=== PATIENT | male | born 1975 | race Caucasian/White ===

== ENCOUNTER 2017-06-04 16:29 | Emergency (ER) | payer BC ==
[2017-06-04 16:36] VITALS: BP 139/91
--- NOTE | 2017-06-04 17:06 | RADIOLOGY REPORT (SQ) ---
EXAM DESCRIPTION: ANKLE LEFT COMPLETE COMPLETED DATE/TIME: 06/04/2017 4:58 pm REASON FOR STUDY: fall COMPARISON: None. NUMBER OF VIEWS: Three views. TECHNIQUE: AP, lateral, and oblique radiographic images acquired of the left ankle. LIMITATIONS: None. FINDINGS: MINERALIZATION: Normal. BONES: No acute fracture or dislocation. No worrisome bone lesions. JOINTS: There is a small ankle effusion demonstrated on the lateral film. SOFT TISSUES: No soft tissue swelling. No foreign body. OTHER: No other significant finding. IMPRESSION: Small ankle effusion. No fractures. TECHNICAL DOCUMENTATION: JOB ID: [id number]- All Rights Reserved
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
== END 2017-06-04 18:04 | disposition home or self-care (01) ==
LOC: ER 16:29
DX: S93.412A Sprain of calcaneofibular ligament of left ankle, initial encounter (principal); X50.1XXA Overexertion from prolonged static or awkward postures, initial encounter
CPT/HCPCS: 99283; 73610; L1902

== ENCOUNTER 2018-12-04 15:05 | Emergency (ER) | payer BC, OTHER ==
--- NOTE | 2018-12-04 18:59 | ER Document Report ---
ED General - General Chief Complaint: Blood Pressure Problem Stated Complaint: BLOOD PRESSURE ISSUE Time Seen by Provider: 12/04/18 18:45 Primary Care Provider: DWAYNE GENAO MD [Primary Care Provider] - Follow up in 1 month Notes: Patient is a 43-year-old male that presents to the emergency department for chief complaint of elevated blood pressure. Patient reports that his blood pressure has been elevated, at home he takes his blood pressure using a home wrist cuff, the systolic has been in the 160s and 170s, with a diastolic in the 110s, he does take losartan 100 mg daily for his blood pressure, he was on hydrochlorothiazide in the past, but it was discontinued recently. He states there was a period of time where he missed doses of his medication, but got back on them, he was seen in the office on Tuesday and his blood pressure was elevated, there is no adjustments at this time, is been having some mild headaches in the morning, at this time denies having any headache, is been taking Motrin when it does come up. Denies any other complaints, denies chest pain, decreased urine, confusion, syncope, or shortness of breath. Denies any swelling in his legs. Past Medical History: Hypertension, restless leg syndrome Past Surgical History: ORIF of the tibia, left elbow surgery Social History: Former smoker, denies alcohol or drug use. Family History: Reviewed and noncontributory for presenting illness Allergies: Reviewed, see documented allergy list. REVIEW OF SYSTEMS: Other than noted above, the 12 point review of systems was reviewed with the patient and were negative, all pertinent findings are included in the HPI. PHYSICAL EXAMINATION: Vital signs reviewed, nursing noted reviewed. GENERAL: Well-appearing, well-nourished and in no acute distress. HEAD: Atraumatic, normocephalic. EYES: Eyes appear normal, extraocular movements intact, sclera anicteric, conjunctiva are normal. ENT: nares patent, oropharynx clear without exudates. Moist mucous membranes. NECK: Normal range of motion, supple without lymphadenopathy LUNGS: Breath sounds clear to auscultation bilaterally and equal. No wheezes rales or rhonchi. HEART: Regular rate and rhythm without murmurs ABDOMEN: Soft, nontender, normoactive bowel sounds. No rebound, guarding, or rigidity. No masses appreciated. EXTREMITIES: Nontender, good range of motion, no pitting or edema. NEUROLOGICAL: No focal neurological deficits. Moves all extremities spontaneously Motor and sensory grossly intact on exam. PSYCH: Normal mood, normal affect. SKIN: Warm, Dry, normal turgor, no rashes or lesions noted on exposed skin TRAVEL OUTSIDE OF THE [place] IN LAST 30 DAYS: No - Related Data Allergies/Adverse Reactions: No Known Allergies Allergy (Unverified 12/04/18 15:10) Past Medical History - Social History Smoking Status: Former Smoker Frequency of alcohol use: twice a month Drug Abuse: None Family History: Reviewed & Not Pertinent, CAD, Hyperlipidemia, Hypertension, Malignancy Patient has suicidal ideation: No Patient has homicidal ideation: No - Past Medical History Cardiac Medical History: Reports: Hx Hypertension Renal/ Medical History: Denies: Hx Peritoneal Dialysis Musculoskeletal Medical History: Reports Hx Musculoskeletal Trauma Traumatic Medical History: Reports: Hx Fractures - knee right left elbow Past Surgical History: Reports: Hx Orthopedic Surgery - left elbow, right tibial plateau - Immunizations Hx Diphtheria, Pertussis, Tetanus Vaccination: No Physical Exam - Vital signs Vitals: Temp Pulse Resp BP Pulse Ox 99.0 F 101 H 16 166/101 H 98 12/04/18 15:55 12/04/18 15:55 12/04/18 15:55 12/04/18 15:55 12/04/18 15:55 Course - Re-evaluation Re-evalutation: Patient was seen and examined, vital signs reviewed, his blood pressure was elevated, is mildly tachycardic on presentation, upon repeat of his vitals, his heart rate did come down to a degree, feel the patient does need treatment for his blood pressure, he is already on 100 mg of losartan daily, do not feel increasing this would improve his blood pressure much, I discussed with him other options including amlodipine, and metoprolol, given that he was mildly tachycardic upon arrival, we decided to start him on metoprolol 25 mg twice daily to help augment his blood pressure, advised to follow-up with his primary care of which she has an appointment coming up in a few weeks, he is advised to monitor the blood pressure and his heart rate, with his monitor at home, if he had lightheadedness, to call his primary care and discontinue the metoprolol. Patient was agreeable and discharged home. - Vital Signs Vital signs: Temp Pulse Resp BP Pulse Ox 98.2 F 81 20 162/118 H 98 12/04/18 19:02 12/04/18 19:02 12/04/18 19:02 12/04/18 19:02 12/04/18 19:02 Discharge - Discharge Clinical Impression: Hypertension Qualifiers: Hypertension type: unspecified Qualified Code(s): I10 - Essential (primary) hypertension Condition: Stable Disposition: HOME, SELF-CARE Instructions: High Blood Pressure, Requiring Treatment ([facility]) Prescriptions: RX: Metoprolol Tartrate [Lopressor 25 mg Tablet] 25 mg PO Q12 #60 tab Referrals: DWAYNE GENAO MD [Primary Care Provider] - Follow up in 1 month
[2018-12-04 19:07] VITALS: BP 162/118
== END 2018-12-04 19:07 | disposition home or self-care (01) ==
LOC: ER 15:05
DX: I10 Essential (primary) hypertension (principal); Z79.899 Other long term (current) drug therapy; R00.0 Tachycardia, unspecified; Z87.891 Personal history of nicotine dependence
CPT/HCPCS: 99283

== ENCOUNTER 2019-01-15 04:05 | Emergency (ER) | payer OTHER ==
[2019-01-15] MEDS ORDERED: NORMAL SALINE 1000 ML 1,000 ML IV ONE (05:03)
[2019-01-15] MEDS ORDERED: MORPHINE SULFATE 10 MG/ML INJ IV ONE (05:03)
[2019-01-15] MEDS ORDERED: ONDANSETRON HCL INJ/PF 4 MG/2 ML SDV IV ONE (05:03)
--- NOTE | 2019-01-15 05:19 | ER Document Report ---
ED GI/ - General Chief Complaint: Abdominal Pain Stated Complaint: SEVERE ABDOMINAL PAIN Time Seen by Provider: 01/15/19 04:59 Primary Care Provider: DWAYNE GENAO MD [Primary Care Provider] - Follow up as needed Notes: Patient is a 43-year-old male that comes to the emergency department for chief complaint of abdominal pain. He states the pain will come up, pain is in the middle of his abdomen, he states pain is severe and caused him to vomit several times. He denies fever or chills. He reports a normal bowel movement within the past day. He reports a past medical history of smoking, hypertension, and kidney stones. He states this does not feel the same as his previous kidney stones. He does report possible pinkish urine however. He denies any abdominal surgeries. TRAVEL OUTSIDE OF THE [place] IN LAST 30 DAYS: No - Related Data Allergies/Adverse Reactions: No Known Allergies Allergy (Unverified 12/04/18 15:10) Past Medical History - Social History Smoking Status: Unknown if Ever Smoked Family History: Reviewed & Not Pertinent, CAD, Hyperlipidemia, Hypertension, Malignancy Patient has suicidal ideation: No Patient has homicidal ideation: No - Past Medical History Cardiac Medical History: Reports: Hx Hypertension Renal/ Medical History: Denies: Hx Peritoneal Dialysis Musculoskeletal Medical History: Reports Hx Musculoskeletal Trauma Traumatic Medical History: Reports: Hx Fractures - knee right left elbow Past Surgical History: Reports: Hx Orthopedic Surgery - left elbow, right tibial plateau - Immunizations Hx Diphtheria, Pertussis, Tetanus Vaccination: No Review of Systems - Review of Systems Constitutional: No symptoms reported EENT: No symptoms reported Cardiovascular: No symptoms reported Respiratory: No symptoms reported Gastrointestinal: See HPI Genitourinary: See HPI Male Genitourinary: No symptoms reported Musculoskeletal: No symptoms reported Skin: No symptoms reported Hematologic/Lymphatic: No symptoms reported Neurological/Psychological: No symptoms reported Physical Exam - Vital signs Vitals: Temp Pulse Resp BP Pulse Ox 97.4 F 67 16 143/93 H 99 01/15/19 04:09 01/15/19 04:09 01/15/19 04:09 01/15/19 04:09 01/15/19 04:09 - Notes Notes: GENERAL: Alert, moderate distress, has trouble holding still HEAD: Normocephalic, atraumatic. EYES: Pupils equal, round, and reactive to light. Extraocular movements intact. ENT: Oral mucosa moist, tongue midline. Oropharynx unremarkable. Airway patent. Nares patent, no nasal septal hematoma, TM's intact. NECK: Full range of motion. Supple. Trachea midline. LUNGS: Clear to auscultation bilaterally, no wheezes, rales, or rhonchi. No respiratory distress. HEART: Regular rate and rhythm. No murmur ABDOMEN: There is tenderness in the left general abdomen in both lower and upper areas. Right side of the abdomen is completely unremarkable. GENITOURINARY: No tenderness or concerning N normality noted. EXTREMITIES: Moves all 4 extremities spontaneously. No edema, normal radial and dorsalis pedis pulses bilaterally. No cyanosis. BACK: no cervical, thoracic, lumbar midline tenderness. No saddle anesthesia, normal distal neurovascular exam. NEUROLOGICAL: Alert and oriented x3. Normal speech. [cranial nerves II through XII grossly intact]. PSYCH: Mildly agitated SKIN: Warm, dry, normal turgor. No rashes or lesions noted. Course - Re-evaluation Re-evalutation: Patient with obvious discomfort. There is tenderness in the left side of the abdomen. He reports that he had some pink urine. Most likely passing ureterolithiasis. CBC unremarkable, chemistry unremarkable. CAT scan was performed because patient states this is not the same as his previous experiences and he is in obvious discomfort. CAT scan shows passing 2 mm stone with low-grade obstruction. No acute findings otherwise. Urinalysis obtained, it does have 1+ bacteria but there are no leukocyte esterase, nitrites, and only 2 white blood cells. Grossly bloody. Culture was placed. Patient does not have a fever. Symptoms just started. Discussed with patient. Patient was helped by Toradol more than anything else. He does not have a urologist, he will be referred. Patient appears much improved. Discussed follow-up and return precautions. Patient states understanding and agreement. - Vital Signs Vital signs: Temp Pulse Resp BP Pulse Ox 97.4 F 67 17 154/100 H 96 01/15/19 04:09 01/15/19 04:09 01/15/19 07:01 01/15/19 07:01 01/15/19 07:01 - Laboratory Result Diagrams: 01/15/19 04:25 01/15/19 04:25 Laboratory results interpreted by me: 01/15/19 01/15/19 01/15/19 04:25 04:25 07:07 Hgb 17.1 H Glucose 140 H Calcium 10.9 H Urine Protein 30 H Urine Glucose (UA) 50 H Urine Blood LARGE H Discharge - Discharge Clinical Impression: Ureterolithiasis Vomiting Qualifiers: Vomiting type: unspecified Vomiting Intractability: non-intractable Nausea presence: with nausea Qualified Code(s): R11.2 - Nausea with vomiting, unspecified Abdominal pain Qualifiers: Abdominal location: unspecified location Qualified Code(s): R10.9 - Unspecified abdominal pain Condition: Stable Disposition: HOME, SELF-CARE Additional Instructions: You are passing a 2 mm kidney stone on the left side. There is an additional st one in the left kidney that may pass in the future. Take the pain medication if needed, you can take them both together if needed, take the nausea medication as prescribed. Follow-up with urology referral listed below. Return if you worsen including fever/chills, severe worsening pain, uncontrolled vomiting, or any other concerning symptoms. [facility] [address] [place] [id number] [facility] [address] [place], [place] [id number] Lore Rowley MD Doctor in [place], [place] Address: [address] [place] [address] [address], [place] [address] Prescriptions: Oxycodone HCl/Acetaminophen [Percocet 5-325 mg Tablet] 1 - 2 tab PO Q6HP PRN #15 tablet PRN Reason: Ketorolac Tromethamine [Toradol 10 mg Tablet] 10 mg PO Q8HP PRN #24 tablet PRN Reason: Ondansetron [Zofran Odt 4 mg Tablet] 1 - 2 tab PO Q4H PRN #20 tab.rapdis PRN Reason: For Nausea/Vomiting Forms: Return to Work Referrals: DWAYNE GENAO MD [Primary Care Provider] - Follow up as needed
[2019-01-15] MEDS ORDERED: ONDANSETRON HCL INJ/PF 4 MG/2 ML SDV ONE (05:27)
[2019-01-15 05:29] LABS: ABSOLUTE LYMPHOCYTES (AUTO) 3.8 10^3/uL (0.5-4.7); ABSOLUTE NEUT (AUTO) 4.8 10^3/uL (1.7-8.2); BASOPHILS % (AUTO) 0.7 % (0-2); EOSINOPHILS % (AUTO) 3.1 % (0-6); HEMATOCRIT 49.2 % (37.9-51.0); HEMOGLOBIN 17.1 g/dL (13.5-17.0); LYMPHOCYTES % (AUTO) 37.3 % (13-45); MEAN CORPUSCULAR HEMOGLOBIN 31.1 pg (27.0-33.4); MEAN CORPUSCULAR HGB CONC 34.8 g/dL (32.0-36.0); MEAN CORPUSCULAR VOLUME 89 fl (80-97); PLATELET COUNT 311 10^3/uL (150-450); RED BLOOD COUNT 5.51 10^6/uL (4.35-5.55); SEGMENTED NEUTROPHILS % (AUTO) 46.9 % (42-78); TOTAL CELLS COUNTED % (AUTO) 100 %; WHITE BLOOD COUNT 10.3 10^3/uL (4.0-10.5)
[2019-01-15 05:30] LABS: ABSOLUTE BASOPHILS # (AUTO) 0.1 10^3/uL (0.0-0.2); ABSOLUTE EOSINOPHILS # (AUTO) 0.3 10^3/uL (0.0-0.6); ABSOLUTE MONOCYTES (AUTO) 1.2 10^3/uL (0.1-1.4)
[2019-01-15] MEDS ORDERED: HYDROMORPHONE HCL INJ/PF 2 MG/ML AMPULE IV ONE ×2 (05:47→07:13)
--- NOTE | 2019-01-15 05:47 | RADIOLOGY REPORT (SQ) ---
EXAM DESCRIPTION: CT ABDOMEN PELVIS WITHOUT IV CONTRAST COMPLETED DATE/TME: 01/15/2019 05:19 CLINICAL HISTORY: 43 years Male, left abd pain, pink urine, vomiting Comparison: None. Technique: No contrast. Coronal and sagittal reformat. This exam was performed according to our departmental dose-optimization program, which includes automated exposure control, adjustment of the mA and/or kV according to patient size and/or use of iterative reconstruction technique.[facility]: Dose Right [facility]: CareDose [facility]: Dose Right [facility]: Teradose 4D [facility]: [employer] LIMITATIONS: None Findings: 0.2 cm complex sized left proximal ureteral stone at the level of the L3-L4 disc with mild left hydronephrosis-hydroureter. Additional uncomplicated punctate left renal stone. Mild left perinephric fat stranding. Normal appendix. Elevated right testis. Unenhanced lower thorax, abdominopelvic structures, and musculoskeleton appear otherwise grossly unremarkable. Impression: A 0.2 cm left proximal ureteral stone with low-grade obstruction.
[2019-01-15 05:51] LABS: BLOOD UREA NITROGEN 14 mg/dL (7-20); CALCIUM 10.9 mg/dL (8.4-10.2); GLUCOSE 140 mg/dL (75-110)
[2019-01-15 05:52] LABS: ALANINE AMINOTRANSFERASE 54 U/L (21-72); ALBUMIN 4.2 g/dL (3.5-5.0); ALKALINE PHOSPHATASE 114 U/L (38-126); ANION GAP 7 (5-19); ASPARTATE AMINO TRANSFERASE 51 U/L (17-59); BILIRUBIN,DIRECT 0.3 mg/dL (0.0-0.4); BILIRUBIN,TOTAL 0.6 mg/dL (0.2-1.3); CARBON DIOXIDE 28 mmol/L (22-30); CHLORIDE 106 mmol/L (98-107); LIPASE 189.9 U/L (23-300); POTASSIUM 4.4 mmol/L (3.6-5.0); SODIUM 140.8 mmol/L (137-145); TOTAL PROTEIN 7.4 g/dL (6.3-8.2)
[2019-01-15] MEDS ORDERED: KETOROLAC TROMETHAMINE INJ/PF 30 MG/1 ML SDV IV ONE ×2 (05:58→07:13)
[2019-01-15 07:26] LABS: APPEARANCE,URINE CLOUDY; BILIRUBIN,URINE NEGATIVE (NEGATIVE); COLOR,URINE YELLOW; GLUCOSE, URINE 50 mg/dL (NEGATIVE); KETONES,URINE NEGATIVE (NEGATIVE); LEUKOCYTE ESTERASE,URINE NEGATIVE (NEGATIVE); NITRITE,URINE NEGATIVE (NEGATIVE); PROTEIN,URINE 30 mg/dL (NEGATIVE); UROBILINOGEN,URINE NEGATIVE mg/dL (<2.0)
--- NOTE | 2019-01-15 07:37 | EKG REPORT ---
SEVERITY:- NORMAL ECG - SINUS RHYTHM : Confirmed by: Ray Delvalle MD 15-Jan-2019 07:37:05
[2019-01-15 08:04] VITALS: BP 144/96
== END 2019-01-15 08:06 | disposition home or self-care (01) ==
LOC: ER 04:05
DX: N20.1 Calculus of ureter (principal); R11.2 Nausea with vomiting, unspecified; R10.9 Unspecified abdominal pain; I10 Essential (primary) hypertension
CPT/HCPCS: 93005; 96376; 99284; 96361; 96374; 96375; 36415; 87086; 83690; 85025; 80053; 81001; 74176; 93010; J1885; J2270; J1170; J2405; J7030